=== PATIENT | male | born 1970 | race Caucasian/White ===

== ENCOUNTER 2020-08-23 08:22 | Emergency (ER) | payer MEDICAID, OTHER ==
[2020-08-23] MEDS ORDERED: Sodium Chloride 0.9% 10 ML Syringe FLUSH PRN (08:35)
[2020-08-23] MEDS ORDERED: Ketorolac 60 MG/2 ML SDV IM ONE (09:16)
[2020-08-23] MEDS ORDERED: Acetaminophen 500 MG Tab PO ONE (09:16)
--- NOTE | 2020-08-23 09:29 | EDM.PDOC ---
ED HPI GENERAL MEDICAL PROBLEM - General Stated Complaint: HEADACHE Time Seen by Provider: 08/23/20 08:35 Source of Information: Reports: Patient History Limitations: Reports: No Limitations - History of Present Illness INITIAL COMMENTS - FREE TEXT/NARRATIVE: Patient presented to the ED because of headache which started this morning as soon as he woke up. There is no nausea,vomiting,photophobia. There is no fever,chills or neck stiffness. headache Pain Score (Numeric/FACES): 10 - Related Data Allergies Allergy/AdvReac Type Severity Reaction Status Date / Time cyclobenzaprine Allergy Nausea Verified 04/02/17 21:58 [From Flexeril] Home Meds: Home Meds PARoxetine HCl [Paxil] 40 mg PO DAILY 04/02/17 [History] Past Medical History HEENT History: Reports: Impaired Vision Cardiovascular History: Reports: None Respiratory History: Reports: None Gastrointestinal History: Reports: None Genitourinary History: Reports: None Musculoskeletal History: Reports: Fracture, Other (See Below) Other Musculoskeletal History: left hand x2 Neurological History: Reports: Brain Injury, Concussion, Head Trauma, Migraines, Other (See Below) Other Neuro History: TBI x2 Psychiatric History: Reports: Anxiety, Depression, Panic Attack, Suicide Attempt Endocrine/Metabolic History: Reports: None Hematologic History: Reports: None Immunologic History: Reports: None Oncologic (Cancer) History: Reports: None Dermatologic History: Reports: Psoriasis - Infectious Disease History Infectious Disease History: Reports: Chicken Pox - Past Surgical History Head Surgeries/Procedures: Reports: None HEENT Surgical History: Reports: None Cardiovascular Surgical History: Reports: None Respiratory Surgical History: Reports: None GI Surgical History: Reports: None Endocrine Surgical History: Reports: None Neurological Surgical History: Reports: None Musculoskeletal Surgical History: Reports: None Oncologic Surgical History: Reports: None Dermatological Surgical History: Reports: None Social & Family History - Caffeine Use Caffeine Use: Reports: Soda ED ROS GENERAL - Review of Systems Review Of Systems: See Below Constitutional: Reports: No Symptoms HEENT: Reports: No Symptoms Respiratory: Reports: No Symptoms Cardiovascular: Reports: No Symptoms Endocrine: Reports: No Symptoms GI/Abdominal: Reports: No Symptoms : Reports: No Symptoms Musculoskeletal: Reports: No Symptoms Skin: Reports: No Symptoms Neurological: Reports: Headache Psychiatric: Reports: No Symptoms - Physical Exam Exam: See Below Exam Limited By: No Limitations General Appearance: Alert, No Apparent Distress Ears: Normal External Exam, Normal [place] Nose: Normal Inspection, Normal Mucosa Throat/Mouth: Normal Inspection, Normal Lips Head Exam: Atraumatic, Normocephalic Neck: Normal Inspection, Supple, Non-Tender, Full Range of Motion Respiratory/Chest: No Respiratory Distress, Lungs Clear, Normal Breath Sounds Cardiovascular: Normal Peripheral Pulses, Regular Rate, Rhythm, No Edema, No Gallop GI/Abdominal: Normal Bowel Sounds, Soft, Non-Tender, No Organomegaly Neuro Exam (Abbreviated): Alert, Oriented, CN II-XII Intact, Normal Cognition Course - Vital Signs Text/Narrative:: Labs/EKG/Head CT was discussed with patient Toradol 30 mg IV x1 Tylenol 1000 mg PO x1 Last Recorded V/S: Last Vital Signs Temp 36.6 C 08/23/20 09:40 Pulse 71 08/23/20 09:40 Resp 14 08/23/20 09:40 BP 127/76 08/23/20 09:40 Pulse Ox 96 08/23/20 09:40 - Orders/Labs/Meds Orders: Active Orders 24 hr Category Date Time Status Head wo Cont [CT] Stat Exams 08/23/20 08:35 Taken Saline Lock Insert [OM.PC] Routine Oth 08/23/20 08:35 Ordered EKG 12 Lead [EK] Routine Ther 08/23/20 08:35 Ordered Labs: Laboratory Tests 08/23/20 08/23/20 08/23/20 Range/Units 08:45 08:45 08:45 WBC 11.5 H (3.2-10.1) x10-3/uL RBC 4.89 (3.90-5.90) x10(6)uL Hgb 15.1 (12.9-17.7) g/dL Hct 45.1 (38.3-50.1) % MCV 92.4 (80.8-98.7) fL MCH 30.8 (27.0-33.3) pg MCHC 33.4 (28.7-35.3) g/dL RDW 13.4 (12.4-15.0) % Plt Count 292 (117-477) x10(3)uL MPV 7.7 (6.7-11.0) fL Neut % (Auto) 67.8 (40.3-71.8) % Lymph % (Auto) 21.4 (15.8-45.3) % [place] % (Auto) 7.9 (5.5-15.2) % Eos % (Auto) 2.2 (0.1-6.8) % Baso % (Auto) 0.7 (0.3-3.8) % Neut # (Auto) 7.8 H (1.7-6.9) x10-3/uL Lymph # (Auto) 2.5 (0.5-4.5) x10-3/uL [place] # (Auto) 0.9 (0.0-1.2) x10-3/uL Eos # (Auto) 0.3 (0.0-0.6) x10-3/uL Baso # (Auto) 0.1 (0.0-0.3) x10-3/uL Sodium 136 (135-145) mmol/L Potassium 4.4 (3.5-5.3) mmol/L Chloride 103 (100-110) mmol/L Carbon Dioxide 24 (21-32) mmol/L BUN 17 (7-18) mg/dL Creatinine 1.0 (0.70-1.30) mg/dL Est Cr Clr Drug Dosing 103.90 mL/min Estimated GFR (MDRD) > 60 (>60) BUN/Creatinine Ratio 17.0 (9-20) Glucose 134 H (80-116) mg/dL Calcium 8.4 L (8.6-10.2) mg/dL Total Bilirubin 0.3 (0.1-1.3) mg/dL AST 16 D (5-25) IU/L ALT 28 (12-36) U/L Alkaline Phosphatase 111 (56-112) IU/L Troponin I < 4.0 L (4.0-60.3) pg/mL Total Protein 7.2 (6.0-8.0) g/dL Albumin 3.7 (3.5-5.2) g/dL Globulin 3.5 g/dL Albumin/Globulin Ratio 1.1 Meds: Medications Discontinued Medications Generic Name Dose Route Start Last Admin Trade Name Freq PRN Reason Stop Dose Admin Acetaminophen 1,000 mg 08/23/20 09:16 08/23/20 09:22 Tylenol Extra Strength PO 01/19/21 09:17 1,000 mg ONETIME ONE Administration Ketorolac Tromethamine 60 mg 08/23/20 09:16 08/23/20 09:22 Toradol IM 08/23/20 09:17 60 mg ONETIME ONE Administration Sodium Chloride 10 ml 08/23/20 08:35 08/23/20 09:32 Saline Flush FLUSH 10 ml ASDIRECTED PRN Administration Keep Vein Open Departure - Departure Time of Disposition: 09:45 Disposition: Home, Self-Care 01 Condition: Good Clinical Impression: Headache - Discharge Information Instructions: General Headache Without Cause, [id number] Referrals: PCP,None [Primary Care Provider] - Forms: ED Department Discharge Additional Instructions: Please read discharge instructions on headache Take ibuprofen 800 mg with tylenol 1000 mg every 8 hours as needed for headache Follow up as needed Sepsis Event Note (ED) - Evaluation Sepsis Screening Result: No Definite Risk - My Orders Last 24 Hours: My Active Orders 08/23/20 08:35 Head wo Cont [CT] Stat Saline Lock Insert [OM.PC] Routine EKG 12 Lead [EK] Routine - Assessment/Plan Last 24 Hours: My Active Orders 08/23/20 08:35 Head wo Cont [CT] Stat Saline Lock Insert [OM.PC] Routine EKG 12 Lead [EK] Routine
[2020-08-23 10:13] VITALS: BP 127/76; PULSE 71
== END 2020-08-23 09:45 | disposition home or self-care (01) ==
LOC: FB.ED 08:22
DX: R51.9 Headache, unspecified (principal); Z88.8 Allergy status to other drugs, medicaments and biological substances; Z79.899 Other long term (current) drug therapy
CPT/HCPCS: 36415; 70450; 80053; 84484; 85025; 93005; 96372; 99283; 99284-25; A9270-GY; J1885

== ENCOUNTER 2021-01-03 17:07 | Emergency (ER) | payer MEDICAID, MEDICARE ==
[2021-01-03] MEDS ORDERED: Aspirin 81 MG Tab.Chew PO STA (17:12)
[2021-01-03] MEDS ORDERED: Ketorolac 30 MG/ML SDV IM ONE (17:33)
[2021-01-03] MEDS ORDERED: tiZANidine 4 MG Tab PO STA (17:33)
--- NOTE | 2021-01-03 17:36 | EDM.PDOC ---
ED HPI GENERAL MEDICAL PROBLEM - General Stated Complaint: CHEST PAIN Time Seen by Provider: 01/03/21 17:15 Source of Information: Reports: Patient History Limitations: Reports: No Limitations - History of Present Illness INITIAL COMMENTS - FREE TEXT/NARRATIVE: Patient presented to the ED because of chest wall pain and abdominal wall muscle strain which started 2 weeks ago. The pain is sharp,5/10, worse with breathing and movements. 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 there's no nausea,vomiting, diaphoresis. - Related Data Allergies Allergy/AdvReac Type Severity Reaction Status Date / Time cyclobenzaprine Allergy Nausea Verified 01/03/21 17:22 [From Flexeril] Home Meds: Home Meds PARoxetine HCl [Paxil] 40 mg PO DAILY 04/02/17 [History] Past Medical History HEENT History: Reports: Impaired Vision Cardiovascular History: Reports: None Respiratory History: Reports: None Gastrointestinal History: Reports: None Genitourinary History: Reports: None Musculoskeletal History: Reports: Fracture, Other (See Below) Other Musculoskeletal History: left hand x2 Neurological History: Reports: Brain Injury, Concussion, Head Trauma, Migraines, Other (See Below) Other Neuro History: TBI x2 Psychiatric History: Reports: Anxiety, Depression, Panic Attack, Suicide Attempt Endocrine/Metabolic History: Reports: None Hematologic History: Reports: None Immunologic History: Reports: None Oncologic (Cancer) History: Reports: None Dermatologic History: Reports: Psoriasis - Infectious Disease History Infectious Disease History: Reports: Chicken Pox - Past Surgical History Head Surgeries/Procedures: Reports: None HEENT Surgical History: Reports: None Cardiovascular Surgical History: Reports: None Respiratory Surgical History: Reports: None GI Surgical History: Reports: None Endocrine Surgical History: Reports: None Neurological Surgical History: Reports: None Musculoskeletal Surgical History: Reports: None Oncologic Surgical History: Reports: None Dermatological Surgical History: Reports: None Social & Family History - Caffeine Use Caffeine Use: Reports: Soda ED ROS GENERAL - Review of Systems Review Of Systems: See Below Constitutional: Reports: No Symptoms HEENT: Reports: No Symptoms Respiratory: Reports: No Symptoms Cardiovascular: Reports: Chest Pain Endocrine: Reports: No Symptoms GI/Abdominal: Reports: No Symptoms : Reports: No Symptoms Musculoskeletal: Reports: No Symptoms Skin: Reports: No Symptoms Neurological: Reports: No Symptoms Psychiatric: Reports: No Symptoms ED EXAM, GENERAL - Physical Exam Exam: See Below Exam Limited By: No Limitations General Appearance: Alert, No Apparent Distress Eye Exam: Bilateral Eye: PERRL Ears: Normal External Exam Nose: Normal Inspection, Normal Mucosa, No Blood Throat/Mouth: Normal Inspection, Normal Lips, Normal Teeth Head: Atraumatic, Normocephalic Neck: Normal Inspection, Supple, Non-Tender Respiratory/Chest: No Respiratory Distress, Lungs Clear, Normal Breath Sounds Cardiovascular: Normal Peripheral Pulses, Regular Rate, Rhythm, No Edema GI/Abdominal: Normal Bowel Sounds, Soft, Non-Tender, No Organomegaly Back Exam: Normal Inspection, Full Range of Motion Extremities: Normal Inspection, Normal Range of Motion, Non-Tender #1 Interpretation EKG Date: 01/03/21 Time: 17:25 Rhythm: NSR Rate (Beats/Min): 76 [place]: Normal P-Wave: Present QRS: Normal ST-T: Normal QT: Normal Comparison: NA - No Prior EKG EKG Interpretation Comments: NSR Course - Vital Signs Text/Narrative:: Lab/EKG result was reviewed and discussed with patient ASA 324 mg PO x1 Toradol 60 mg IM x1 Tizanidine 4 mg PO x1 - Orders/Labs/Meds Orders: Active Orders 24 hr Category Date Time Status EKG Documentation Completion [RC] ASDIRECTED Care 01/03/21 17:12 Active EKG 12 Lead [EK] Routine Ther 01/03/21 17:12 Ordered Labs: Laboratory Tests 01/03/21 01/03/21 01/03/21 Range/Units 17:22 17:22 17:22 WBC 9.0 (3.2-10.1) x10-3/uL RBC 4.93 (3.90-5.90) x10(6)uL Hgb 15.5 (12.9-17.7) g/dL Hct 45.2 (38.3-50.1) % MCV 91.6 (80.8-98.7) fL MCH 31.4 (27.0-33.3) pg MCHC 34.2 (28.7-35.3) g/dL RDW 13.9 (12.4-15.0) % Plt Count 322 (117-477) x10(3)uL MPV 8.0 (6.7-11.0) fL Neut % (Auto) 59.8 (40.3-71.8) % Lymph % (Auto) 30.8 (15.8-45.3) % [place] % (Auto) 5.3 L (5.5-15.2) % Eos % (Auto) 3.2 (0.1-6.8) % Baso % (Auto) 0.9 (0.3-3.8) % Neut # (Auto) 5.4 (1.7-6.9) x10-3/uL Lymph # (Auto) 2.8 (0.5-4.5) x10-3/uL [place] # (Auto) 0.5 (0.0-1.2) x10-3/uL Eos # (Auto) 0.3 (0.0-0.6) x10-3/uL Baso # (Auto) 0.1 (0.0-0.3) x10-3/uL D-Dimer, Quantitative (0.0-0.59) mg/LFEU Sodium 140 (135-145) mmol/L Potassium 4.0 (3.5-5.3) mmol/L Chloride 104 (100-110) mmol/L Carbon Dioxide 26 (21-32) mmol/L BUN 11 (7-18) mg/dL Creatinine 0.9 (0.70-1.30) mg/dL Est Cr Clr Drug Dosing TNP Estimated GFR (MDRD) > 60 (>60) BUN/Creatinine Ratio 12.2 (9-20) Glucose 90 (80-116) mg/dL Calcium 8.0 L (8.6-10.2) mg/dL Total Bilirubin 0.3 (0.1-1.3) mg/dL AST 26 H D (5-25) IU/L ALT 29 (12-36) U/L Alkaline Phosphatase 127 H (56-112) IU/L Troponin I 5.5 (4.0-60.3) pg/mL Total Protein 7.3 (6.0-8.0) g/dL Albumin 3.7 (3.5-5.2) g/dL Globulin 3.6 g/dL Albumin/Globulin Ratio 1.0 // Range/Units 17:22 WBC (3.2-10.1) x10-3/uL RBC (3.90-5.90) x10(6)uL Hgb (12.9-17.7) g/dL Hct (38.3-50.1) % MCV (80.8-98.7) fL MCH (27.0-33.3) pg MCHC (28.7-35.3) g/dL RDW (12.4-15.0) % Plt Count (117-477) x10(3)uL MPV (6.7-11.0) fL Neut % (Auto) (40.3-71.8) % Lymph % (Auto) (15.8-45.3) % [place] % (Auto) (5.5-15.2) % Eos % (Auto) (0.1-6.8) % Baso % (Auto) (0.3-3.8) % Neut # (Auto) (1.7-6.9) x10-3/uL Lymph # (Auto) (0.5-4.5) x10-3/uL [place] # (Auto) (0.0-1.2) x10-3/uL Eos # (Auto) (0.0-0.6) x10-3/uL Baso # (Auto) (0.0-0.3) x10-3/uL D-Dimer, Quantitative 0.50 (0.0-0.59) mg/LFEU Sodium (135-145) mmol/L Potassium (3.5-5.3) mmol/L Chloride (100-110) mmol/L Carbon Dioxide (21-32) mmol/L BUN (7-18) mg/dL Creatinine (0.70-1.30) mg/dL Est Cr Clr Drug Dosing Estimated GFR (MDRD) (>60) BUN/Creatinine Ratio (9-20) Glucose (80-116) mg/dL Calcium (8.6-10.2) mg/dL Total Bilirubin (0.1-1.3) mg/dL AST (5-25) IU/L ALT (12-36) U/L Alkaline Phosphatase (56-112) IU/L Troponin I (4.0-60.3) pg/mL Total Protein (6.0-8.0) g/dL Albumin (3.5-5.2) g/dL Globulin g/dL Albumin/Globulin Ratio Meds: Medications Discontinued Medications Generic Name Dose Route Start Last Admin Trade Name Cora PRN Reason Stop Dose Admin Aspirin 81 mg 01/03/21 17:12 01/03/21 17:39 Aspirin 81 Mg Tab.Chew PO 01/03/21 17:13 81 mg NOW STA Administration Ketorolac Tromethamine 60 mg 01/03/21 17:33 01/03/21 17:39 Ketorolac 30 Mg/Ml Sdv IM 01/03/21 17:34 60 mg ONETIME ONE Administration Tizanidine HCl 4 mg 01/03/21 17:33 Tizanidine 4 Mg Tab PO 01/03/21 17:34 NOW STA Departure - Departure Time of Disposition: 18:00 Disposition: Home, Self-Care 01 Condition: Good Clinical Impression: Atypical chest pain Instructions: Nonspecific Chest Pain, Adult Additional Instructions: Please read discharge instructions on atypical chest pain Take ibuprofen 800 mg with tylenol 1000 mg every 8 hours as needed for pain Tizanidine 4 mg every 8 hours as needed for muscle spasm Follow up as needed - My Orders Last 24 Hours: My Active Orders 01/03/21 17:12 EKG Documentation Completion [RC] ASDIRECTED EKG 12 Lead [EK] Routine - Assessment/Plan Last 24 Hours: My Active Orders 01/03/21 17:12 EKG Documentation Completion [RC] ASDIRECTED EKG 12 Lead [EK] Routine
[2021-01-03 18:19] VITALS: BP 132/82; PULSE 69
== END 2021-01-03 18:13 | disposition home or self-care (01) ==
LOC: FB.ED 17:07
DX: R07.89 Other chest pain (principal); Z88.8 Allergy status to other drugs, medicaments and biological substances
CPT/HCPCS: 36415; 80053; 84484; 85025; 85379; 93005; 96372; 99283-25; A9270-GY; J1885